=== PATIENT | male | born 1995 | race Caucasian/White ===

== ENCOUNTER 2023-11-26 15:21 | Emergency (ER) | payer MEDICAID ==
[~2023-11-26] VITALS: Ht 170.2 cm; Wt 108.0 kg
[2023-11-26 15:42] VITALS: O2SAT 96
[2023-11-26] MEDS ORDERED: IBUP-2028 MT (17:06)
[2023-11-26] MEDS ORDERED: ACET-2708 MT (17:06)
[2023-11-26 18:01] VITALS: BP 152/88; PULSE 88; RESP 18; TEMP 98.7
== END 2023-11-26 18:03 | disposition home or self-care (01) ==
LOC: ER 15:21
DX: M79.605 Pain in left leg (principal); Z00.00 Encounter for general adult medical examination without abnormal findings
CPT/HCPCS: 99282